=== PATIENT | female | born 1985 | race Caucasian/White ===

== ENCOUNTER 2023-08-30 14:24 | Outpatient (CLI) | payer OTHER, SELFPAY ==
--- NOTE | 2023-08-30 14:30 | CRLHL7_ITS ---
For Patients: As a result of the Century Cures Act, medical imaging exams and procedure reports are released immediately into your electronic medical record. You may view this report before your referring provider. If you have questions, please contact your health care provider. Indication: Headache. Technique: Noncontrast sagittal T1, axial FLAIR, T2, diffusion, post contrast T1 weighted sequences are provided. No comparisons. 10 cc of dotarem gadolinium was administered intravenously. Findings: The ventricles, sulci and gyri are normal size, shape and contour for age. The midline structures are centrally located with no evidence of shift. There are no suspicious intra or extra-axial fluid collections. No region of restricted diffusion or suspicious regions of abnormal parenchymal enhancement. Expected flow voids in the cavernous carotids and basilar artery. There is a 13 millimeter ovoid region of nonenhancing increased T2 signal midportion of the right centrum semiovale extending into the periventricular white matter abutting the right lateral ventricle. No other convincing regions of suspicious white matter signal change. Impression: 1. No radiographic evidence of acute intracranial abnormalities. 2. Solitary focus of signal abnormality within the right centrum semiovale that is nonspecific. Differential considerations include changes related to diabetes, hypertension, collagen vascular disease or migranous headaches. Alternatively this could potentially represents a solitary chronic demyelinating plaque. Dictated by David Giron MD @ 08/31/2023 7:56:01 AM (Electronically Signed)
== END 2023-08-30 14:25 | disposition home or self-care (01) ==
LOC: MRI 14:27
PROVIDERS: PCP Family Medicine; Visit Provider Family Medicine
DX: R51.9 Headache, unspecified (principal)
CPT/HCPCS: 70553; A9575